=== PATIENT | female | born 1965 | race African-American/Black ===

== ENCOUNTER 2019-04-26 18:07 | Inpatient (IN) | payer MEDICARE, MEDICAID ==
[~2019-04-26] VITALS: Ht 157.5 cm; Wt 72.3 kg
--- NOTE | 2019-04-26 18:45 | NUR ---
ED Nurse Note: PT brought in by ambulance for c/o sob / hypoxia. pt had a left bunionectomy Sx this morning but did not get sent home due to de sat, pt was brought straight here. pt received xanax, prozac, and versed at 1100. pt is currently alert x4. sp02 99 with oxygen 4L/min via nc. per her foot surgeon, do not remove the cast or dressing on her left foot.
[2019-04-26 18:46] VITALS: BP 140/90
--- NOTE | 2019-04-26 19:03 | NUR ---
ED Nurse Note: x ray at bedside. blood sent to lab
[2019-04-26 19:32] LABS: HEMATOCRIT 38.4 % (37.0-47.0); HEMOGLOBIN 12.8 G/DL (12.0-16.0); MEAN CORPUSCULAR VOLUME 90 FL (80-99); PLATELET COUNT 228 K/UL (150-450); RED BLOOD COUNT 4.28 M/UL (4.20-5.40); WHITE BLOOD COUNT 13.4 K/UL (4.8-10.8)
[2019-04-26 19:33] LABS: LYMPHOCYTES % (AUTO) 3.2 % (20.0-45.0); MONOCYTES % (AUTO) 0.6 % (1.0-10.0); NEUTROPHILS % (AUTO) 95.6 % (45.0-75.0)
[2019-04-26 19:34] LABS: BASOPHILS % (AUTO) 0.6 % (0.0-2.0)
--- NOTE | 2019-04-26 19:35 | NUR ---
ED Nurse Note: urine sample sent to lab
[2019-04-26 19:40] LABS: ANION GAP 8 mmol/L (5-15); BLOOD UREA NITROGEN 15 mg/dL (7-18); CALCIUM 8.5 MG/DL (8.5-10.1); CARBON DIOXIDE 30 MMOL/L (21-32); CHLORIDE 104 MMOL/L (98-107); CREATININE 0.9 MG/DL (0.55-1.30); POTASSIUM 3.8 MMOL/L (3.5-5.1); SODIUM 142 MMOL/L (136-145)
[2019-04-26 19:45] LABS: ALANINE AMINOTRANSFERASE 41 U/L (12-78); ALBUMIN 3.9 G/DL (3.4-5.0); ALKALINE PHOSPHATASE 103 U/L (46-116); ASPARTATE AMINO TRANSFERASE 25 U/L (15-37); BILIRUBIN,TOTAL 0.3 MG/DL (0.2-1.0); CREATINE KINASE 84 U/L (26-308)
--- NOTE | 2019-04-26 20:07 | Emergency Room Report ---
History of Present Illness General Chief Complaint: Dyspnea/Respdistress Source: Patient, Medical Record, EMS, PMD Present Illness HPI Disclaimer: Please note that this report is being documented using [employer] technology. This can lead to erroneous entry secondary to incorrect interpretation by the dictating instrument. HPI: 54-year-old female with history of COPD presents for evaluation of hypotension and hypoxia after a an elective procedure. Patient had a left bunionectomy today in outpatient surgical center. After the LMA was removed after sedation the patient was found saturating 70 to 80% and had a significant cough with moderate sputum production. According to the patient's anesthesiologist she had not inform them of her recent cough and increasing sputum in the setting of her COPD. She was reportedly hypotensive at the procedure but improved after fluids. She was sent over the ER for medical evaluation. Currently she is on complaining of pain over the left foot over the surgical site. She reportedly received a nerve block by anesthesia as well. She denies any shortness of breath but does note a worsening cough and a hoarse voice which is not her baseline. States her whole family is sick with an upper respiratory illness. No recent fevers, chills, sore throat. She notes nasal congestion, cough but denies chest pain, vomiting or diarrhea. PMH: COPD PSH: Bunionectomy Allergies: Morphine, Toradol Social Hx: Denies drug or alcohol abuse Allergies: Coded Allergies: MORPHINE (Verified Allergy, Unknown, 04/26/19) Patient History Last Menstrual Period: hystrectomy Nursing Documentation-PMH Past Medical History: No History, Except For Review of Systems All Other Systems: negative except mentioned in HPI Physical Exam Vital Signs Date Time Temp Pulse Resp B/P (MAP) Pulse Ox O2 Delivery O2 Flow Rate FiO2 04/26/19 18:36 98.2 94 16 133/94 (107) 99 Nasal Cannula 2.0 General: Awake and alert, appears uncomfortable HEENT: NC/AT. EOMI. Cardiovascular: RRR. S1 and S2 normal. No murmur appreciated Resp: Normal work of breathing. No cough, wheezing or crackles appreciated Abdomen: Abdomen is soft, nondistended. Nontender Skin: Intact. No abrasions, laceration or rash over the exposed skin MSK: Normal tone and bulk. Postoperative shoe on the left foot. Neuro: Awake and alert. Mentating appropriately. Medical Decision Making Diagnostic Impression: Primary Impression: Bronchitis Additional Impression: COPD exacerbation ER Course This is a 54-year-old female presenting from outpatient surgical center for hypotension and hypoxia after a an elective bunionectomy. Differential includes was not limited to pneumonia, bronchitis, COPD exacerbation, influenza , viral syndrome, anesthesia reaction. Patient is saturating approximately 88% on room air but improves to 94% on 2 L. Pressures have been stable since arrival. We will continue IV fluids. Will give breathing treatments, steroids , broad labs. Laboratory Tests Test 04/26/19 18:45 04/26/19 19:56 04/26/19 20:04 White Blood Count 13.4 K/UL (4.8-10.8) H Red Blood Count 4.28 M/UL (4.20-5.40) Hemoglobin 12.8 G/DL (12.0-16.0) Hematocrit 38.4 % (37.0-47.0) Mean Corpuscular Volume 90 FL (80-99) Mean Corpuscular Hemoglobin 29.9 PG (27.0-31.0) Mean Corpuscular Hemoglobin Concent 33.4 G/DL (32.0-36.0) Red Cell Distribution Width 11.0 % (11.6-14.8) L Platelet Count 228 K/UL (150-450) Mean Platelet Volume 7.0 FL (6.5-10.1) Neutrophils (%) (Auto) 95.6 % (45.0-75.0) H Lymphocytes (%) (Auto) 3.2 % (20.0-45.0) L Monocytes (%) (Auto) 0.6 % (1.0-10.0) L Eosinophils (%) (Auto) 0.0 % (0.0-3.0) Basophils (%) (Auto) 0.6 % (0.0-2.0) Sodium Level 142 MMOL/L (136-145) Potassium Level 3.8 MMOL/L (3.5-5.1) Chloride Level 104 MMOL/L (98-107) Carbon Dioxide Level 30 MMOL/L (21-32) Anion Gap 8 mmol/L (5-15) Blood Urea Nitrogen 15 mg/dL (7-18) Creatinine 0.9 MG/DL (0.55-1.30) Estimate Glomerular Filtration Rate > 60 mL/min (>60) Glucose Level 127 MG/DL (74-106) H Lactic Acid Level 2.00 mmol/L (0.4-2.0) Calcium Level 8.5 MG/DL (8.5-10.1) Total Bilirubin 0.3 MG/DL (0.2-1.0) Aspartate Amino Transferase (AST) 25 U/L (15-37) Alanine Aminotransferase (ALT) 41 U/L (12-78) Alkaline Phosphatase 103 U/L (46-116) Total Creatine Kinase 84 U/L (26-308) Troponin I 0.013 ng/mL (0.000-0.056) Total Protein 7.9 G/DL (6.4-8.2) Albumin 3.9 G/DL (3.4-5.0) Globulin 4.0 g/dL Albumin/Globulin Ratio 1.0 (1.0-2.7) Urine Color Pale yellow Urine Appearance Clear Urine pH 7 (4.5-8.0) Urine Specific Adin 1.005 (1.005-1.035) Urine Protein Negative (NEGATIVE) Urine Glucose (UA) Negative (NEGATIVE) Urine Ketones Negative (NEGATIVE) Urine Blood 2+ (NEGATIVE) H Urine Nitrite Negative (NEGATIVE) Urine Bilirubin Negative (NEGATIVE) Urine Urobilinogen Normal MG/DL (0.0-1.0) Urine Leukocyte Esterase Negative (NEGATIVE) Urine RBC 2-4 /HPF (0 - 2) H Urine WBC 0 /HPF (0 - 2) Urine Squamous Epithelial Cells Occasional /LPF Urine Bacteria None /HPF (NONE) Arterial Blood pH 7.355 (7.350-7.450) Arterial Blood Partial Pressure CO2 52.4 mmHg (35.0-45.0) H Arterial Blood Partial Pressure O2 72.9 mmHg (75.0-100.0) L Arterial Blood HCO3 28.6 mmol/L (22.0-26.0) H Arterial Blood Oxygen Saturation 94.3 % (95-100) L Arterial Blood Base Excess 2.1 (-2-2) H Freddy Test Positive EKG Diagnostic Results EKG Time: 18:41 Rate: normal Rhythm: NSR ST Segments: no acute changes Other Impression Sinus rhythm, normal axis, normal intervals, no ST segment changes Rhythm Strip Diag. Results Rhythm Strip Time: 18:41 EP Interpretation: yes Rate: 90s Rhythm: NSR, no PVC's, no ectopy Chest X-Ray Diagnostic Results Chest X-Ray Diagnostic Results : Chest X-Ray Ordered: Yes # of Views/Limited/Complete: 1 View Indication: Shortness of Breath EP Interpretation: Yes Interpretation: no consolidation, no effusion, no acute cardiopulmonary disease Impression: No acute disease Electronically Signed by: Electronically signed by Dr. Mark Lopez Reevaluation Time: 22:35 Last Vital Signs Date Time Temp Pulse Resp B/P (MAP) Pulse Ox O2 Delivery O2 Flow Rate FiO2 04/26/19 18:46 90 16 Nasal Cannula 4.0 04/26/19 18:46 98.2 140/90 99 Reevaluation Impression Labs show slight elevation in white count with a neutrophil predominance. Chemistry unremarkable. Lactate 2.0, troponin negative. Urine unremarkable. Blood gas shows CO2 retention with a PCO2 of 52 and mild hypoxemia with a PO2 of 73. The patient continues on nasal cannula. Will increase to 6 L. She will be admitted for COPD exacerbation and bronchitis. She was given ceftriaxone and azithromycin as well as steroids. Toradol and opiate pain medication as needed. Disposition: ADMITTED INPATIENT Condition: Serious Mark Lopez MD Apr 26, 2019 20:07
[2019-04-26] MEDS ORDERED: HYDROcodone/Acetamin 10/325 tab ORAL ONE (20:15)
[2019-04-26] MEDS ORDERED: Azithromycin 500 MG in NS 275 ML IV ONE (20:15)
[2019-04-26] MEDS ORDERED: Albuterol/Ipratropium 3ml neb HHN ONE (20:15)
[2019-04-26] MEDS ORDERED: cefTRIAXone 1 GM in NS 55 ML IVPB ONE (20:15)
[2019-04-26] MEDS ORDERED: Solu-MEDROL 125mg Inj IVP ONE (20:15)
[2019-04-26 21:09] LABS: APPEARANCE,URINE CLEAR; BILIRUBIN, URINE NEGATIVE (NEGATIVE); COLOR,URINE PALE YELLOW; GLUCOSE, URINE (UA) NEGATIVE (NEGATIVE); KETONES,URINE NEGATIVE (NEGATIVE); LEUKOCYTE ESTERASE ,URINE NEGATIVE (NEGATIVE); NITRITE,URINE NEGATIVE (NEGATIVE); PH,URINE 7 (4.5-8.0); PROTEIN,URINE NEGATIVE (NEGATIVE); UROBILINOGEN,URINE NORMAL MG/DL (0.0-1.0)
[2019-04-26] MEDS ORDERED: Ketorolac 30mg Inj IV ONE (21:15)
[2019-04-26] MEDS ORDERED: Hydromorphone 0.5mg/0.5ml inj ONE (21:29)
[2019-04-26] MEDS ORDERED: Hydromorphone 0.5mg/0.5ml inj IVP ONE (21:30)
[2019-04-26 22:01] VITALS: BP 148/88
--- NOTE | 2019-04-26 22:03 | NUR ---
ED Nurse Note: pt in bed resting, no acute distress is noted.
[2019-04-26] MEDS ORDERED: PROZAC40 MG ORAL (22:46)
[2019-04-26] MEDS ORDERED: ABILIFY10 MG ORAL (22:48)
[2019-04-26] MEDS ORDERED: SEROQUEL200 MG ORAL (22:49)
[2019-04-26] MEDS ORDERED: ALPRAZOLAM1 MG ORAL (22:49)
[2019-04-26] MEDS ORDERED: PERCOCET 10-321 EACH ORAL (22:49)
[2019-04-26] MEDS ORDERED: RESTORIL15 MG ORAL (22:49)
--- NOTE | 2019-04-26 22:50 | NUR ---
ED Nurse Note: pt brought up to tele room 209 in stable condition via gurney accompanied by visual basic programmer and rn. report given to cherise / kacey whatley. belonging list signed off.
--- NOTE | 2019-04-26 23:05 | NUR ---
NURSE NOTES: Pt received from JULIETA Tovar alert and oriented x4 with no acute s/s of distress noted. On 2L NC, saturating at 97%. VS stable upon admission, complaining of 8/10 pain on left foot. IV site asymptoamtic and patent on R ac 24g and R hand 24g. Belongings with patient upon admission with red iphone at bedside. Pt has postop boot on L foot with cast underneath, postop from bunionectomy. Bed in lowest position, call light and belongings within reach.
[2019-04-26 23:17] VITALS: BP 158/96
--- NOTE | 2019-04-26 23:23 | NUR ---
NURSE NOTES: Left message with Dr. Xavier's exchange for admission orders. Currently awaiting call back.
--- NOTE | 2019-04-27 00:11 | NUR ---
NURSE NOTES: Called Dr. Xavier's exchange office again for admission orders and spoke with Ana. Per Ana, she will page MD again. Currently awaiting call back.
--- NOTE | 2019-04-27 01:01 | NUR ---
NURSE NOTES: Called Dr. Xavier's office for admission orders. No answer per Ana. "will try to page MD again." Currently awaiting call back.
--- NOTE | 2019-04-27 01:10 | NUR ---
NURSE NOTES: Nursing Server Systems Administrator made aware of unanswered pages to Dr. Xavier. Per Vahe, "no home phone number found for Dr. Xavier".
--- NOTE | 2019-04-27 01:45 | NUR ---
NURSE NOTES: RN spoke with Ashlyn Cartagena who stated that she left message to Dr. Walls's service (covering behavioral medical director) to obtain admission orders. Awaiting call back, will continue to monitor.
--- NOTE | 2019-04-27 02:56 | NUR ---
NURSE NOTES: No call back received from Dr. Walls's office. RN called Dr. Walls's office again for admission orders, spoke with Joseph. Currently awaiting call back. Will continue to monitor.
--- NOTE | 2019-04-27 03:47 | NUR ---
NURSE NOTES: Per Nursing Java Grails Developer and Charge Nurse, RN left message for Dr. Shah regarding admission orders and for clarification. Currently awaiting call back, will continue to monitor.
[2019-04-27 04:00] VITALS: BP 141/75
--- NOTE | 2019-04-27 05:37 | NUR ---
NURSE NOTES: RN called Dr. Xavier's exchange office for admission orders. Per Madie, "The doctor did not answer the page, I will page him again."
--- NOTE | 2019-04-27 06:34 | NUR ---
NURSE NOTES: Received admission orders from Dr. Piper. Will carry out orders accordingly.
[2019-04-27] MEDS ORDERED: HYDROmorphone 1mg/ml Carpuject IVP PRN ×2 (06:45→10:30)
[2019-04-27] MEDS ORDERED: guaiFENesin w/Codeine 5ml Liq ud ORAL PRN (06:45)
--- NOTE | 2019-04-27 07:25 | NUR ---
NURSE NOTES: Report received from JULIETA Villa. Pt. In 2L NC. Denies SOB. Pain concern communicated. To follow up with MD. Herb Patel 24g IV flushed SL. Bed on lowest position, side rails upx2, brakes engaged. Fall education given. Bed side commode with reach. Call light within easy access.
--- NOTE | 2019-04-27 07:25 | NUR ---
HAND-OFF: Report given to JULIETA Saha. Plan of care endorsed.
[2019-04-27 08:00] VITALS: BP 121/86
[2019-04-27] MEDS: Albuterol/Ipratropium 3ml neb HHN SCH ×4 (08:15→20:42)
[2019-04-27 08:33] LABS: HEMATOCRIT 37.2 % (37.0-47.0); HEMOGLOBIN 12.4 G/DL (12.0-16.0); MEAN CORPUSCULAR VOLUME 90 FL (80-99); PLATELET COUNT 239 K/UL (150-450); RED BLOOD COUNT 4.14 M/UL (4.20-5.40); RED CELL DISTRIBUTION WIDTH 12.6 % (11.6-14.8); WHITE BLOOD COUNT 12.6 K/UL (4.8-10.8)
[2019-04-27 08:39] LABS: ALANINE AMINOTRANSFERASE 36 U/L (12-78); ALBUMIN 3.7 G/DL (3.4-5.0); ALKALINE PHOSPHATASE 93 U/L (46-116); ANION GAP 10 mmol/L (5-15); ASPARTATE AMINO TRANSFERASE 19 U/L (15-37); BILIRUBIN,TOTAL 0.3 MG/DL (0.2-1.0); BLOOD UREA NITROGEN 17 mg/dL (7-18); CALCIUM 8.7 MG/DL (8.5-10.1); CARBON DIOXIDE 28 MMOL/L (21-32); CHLORIDE 104 MMOL/L (98-107); CREATININE 0.8 MG/DL (0.55-1.30); PHOSPHORUS 2.7 MG/DL (2.5-4.9); POTASSIUM 4.2 MMOL/L (3.5-5.1); SODIUM 142 MMOL/L (136-145)
[2019-04-27] MEDS ORDERED: ALPRAZolam 0.5mg tab ORAL ONE (09:00)
[2019-04-27] MEDS ORDERED: QUEtiapine 200mg tab ORAL SCH (09:00)
[2019-04-27] MEDS: ARIPiprazole 10mg tab ORAL SCH (09:16)
[2019-04-27] MEDS: Azithromycin 250mg tab ORAL SCH (09:16)
[2019-04-27] MEDS: Heparin 5000 units/ml inj SUBQ SCH ×2 (09:17→21:38)
[2019-04-27] MEDS ORDERED: DiphenhydrAMINE 50mg/ml Inj IVP ONE (10:30)
[2019-04-27] MEDS: HYDROmorphone 1mg/ml Carpuject IVP PRN ×3 (11:29→20:39)
[2019-04-27 12:00] VITALS: BP 101/68
--- NOTE | 2019-04-27 12:20 | NUR ---
NURSE NOTES: Called Dr. Arias's office to notified of new consult. (Rachel)
--- NOTE | 2019-04-27 12:27 | NUR ---
CASE MANAGEMENT: 54 Y/O FEMALE [facility] PMH: S/P BUNIONECTOMY CC: DYSPNEA/ RESPIRATORY DISTRESS. SI: COPD 98.2 94 16 133/94 99% NC @[facility] 12.4 TROP 0.013 IS: SOLU-MEDROL 125 MG IV ROCEPHIN 1GM IV AZITHROMYCIN 500 MG IV Addendum: 04/27/19 at 1254 by DINESH SHAW RN CASE MANAGEMENT: ~~~~~~[employer]LE[employer] [facility]
--- NOTE | 2019-04-27 12:56 | Diagnostic Imaging Report ---
Indication: Chest pain Technique: XRAY Chest 1v Comparison: None Findings: Heart size and mediastinal contours are within normal limits for AP technique. Peribronchial thickening is suggested. There is no definite focal airspace consolidation no pneumothorax or pleural effusion. Osseous structures demonstrate no acute abnormality. Impression: Peribronchial thickening which may suggest small airway disease/bronchitis. Please correlate clinically.
[2019-04-27] MEDS: Piperacillin/Tazobactam 3.375 GM in NS 110 ML IVPB SCH ×2 (14:46→21:35)
[2019-04-27 16:00] VITALS: BP 124/71
--- NOTE | 2019-04-27 16:02 | Diagnostic Imaging Report ---
Indication: Cough, shortness of breath, COPD Technique: Noncontrast CT of the chest utilizing automated exposure control. Axial, sagittal and coronal reformats presented. CT dose: Total DLP 811.6 mGycm; CTDI vol 16.4 mGy Comparison: None Findings: Please note that evaluation of the mediastinum and vascular structures is limited without the use of intravenous contrast. Within these limitations the following observations are made: There is asymmetric groundglass opacification in the left lung with a somewhat perihilar distribution. Minimal groundglass changes noted in the central right upper lobe. There is no dense consolidation. No pleural effusion or pneumothorax. Heart size within normal limits. No pericardial effusion. Thoracic aorta appears normal in caliber with minimal atherosclerotic calcification. No appreciable pathologically enlarged mediastinal lymphadenopathy. Thyroid is normal in appearance. Imaged portions of the upper abdomen demonstrate no acute abnormality. Minimal degenerative changes noted in the spine. No acute osseous abnormality. IMPRESSION: Perihilar groundglass opacities in the left lung. Differential is broad. Most common etiologies include infectious or inflammatory disease, with infection being favored in this case given history of cough. Additional etiologies include asymmetric alveolar edema or hypersensitivity pneumonitis among others. Clinical correlation and follow-up recommended. No focal consolidation, pleural effusion or pneumothorax. The CT scanner at [facility] is accredited by the [employer] and the scans are performed using protocols designed to limit radiation exposure to as low as reasonably achievable to attain images of sufficient resolution adequate for diagnostic evaluation.
--- NOTE | 2019-04-27 17:30 | Consultation ---
DATE OF CONSULTATION: 04/27/2019 INFECTIOUS DISEASES CONSULTATION CONSULTING PHYSICIAN: Papo Reddy M.D. REFERRING PHYSICIAN: Narendra Xavier M.D. REASON FOR CONSULTATION: Rule out possible pneumonia. HISTORY OF PRESENT ILLNESS: This is a 54-year-old lady with history of COPD, possible hypertension and hypothyroidism who comes in with hypoxia and hypotension after she has had left bunionectomy at the [facility]. There was a concern for pneumonia and an Infectious Diseases consultation has been obtained for antibiotics. PAST MEDICAL HISTORY: 1. History of COPD. 2. Possible hypertension. 3. Hypothyroidism. 4. Status post bunionectomy. SOCIAL HISTORY: She used to be a smoker. She does not smoke anymore. She does not drink alcohol. No history of drug use. FAMILY HISTORY: Her father had prostate cancer. Her mother had heart disease. REVIEW OF SYSTEMS: RESPIRATORY: She has fevers and chills. She has cough. She has shortness of breath. CARDIAC: No chest pain. No palpitation. No dizziness. No syncope. GASTROINTESTINAL: She has nausea. No vomiting. No abdominal pain. No diarrhea. MUSCULOSKELETAL: She complains of left leg pain. MEDICATIONS: As an inpatient, she is on ceftriaxone, subcutaneous heparin, azithromycin, Abilify, Prozac, Seroquel, albuterol ipratropium, guaifenesin, codeine, Zofran, [place], Dilaudid, Tylenol. ALLERGIES: 1. Ketorolac. 2. Morphine. PHYSICAL EXAMINATION: VITAL SIGNS: Temperature of 97.7, T-max of 98.7, pulse of 101, respiratory rate of 18, blood pressure 121/86, O2 saturation of 97%. HEENT: Pupils are equally reactive to light and accommodation. Mouth appears clean without thrush. NECK: Supple. No adenopathy. No JVD. CARDIOVASCULAR: Regular rate and rhythm. No murmurs. LUNGS: Clear to auscultation bilaterally. No crackles. No wheezes. ABDOMEN: Soft and nontender. No organomegaly. EXTREMITIES: No cyanosis, no clubbing, no edema. LABORATORY AND DIAGNOSTIC DATA: White count of 13.4 yesterday, white count of 12.6 today, hemoglobin 12.4, hematocrit 37.2, MCV 90, platelet count of 239. Sodium 142, potassium 4.2, chloride 104, bicarb 28, BUN 17, creatinine 0.8, glucose 136, calcium 8.7. Total bilirubin 0.3, AST 19, ALT 36, alkaline phosphatase 93, total protein 7.4, albumin 3.7. UA showing 0 white cells. Chest x-ray is showing no consolidation. ASSESSMENT: This is a 54-year-old lady with history of COPD, who underwent bunionectomy and subsequently came in with fevers and is found to have. 1. Leukocytosis. 2. We would like to rule out COPD exacerbation. 3. Leukocytosis could also be reactive. 4. . PLAN: 1. Continue ceftriaxone and azithromycin. 2. We will order sputum for Gram stain and culture. 3. We will order nasal swab for influenza. 4. We will follow up cultures and adjust antibiotics accordingly. I would like to thank, Dr. Xavier, for this consultation. Papo Reddy M.D. DR: Dylan JOB#: [id number] CC: Romel Xavier M.D.; Fax#: [phone]
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
--- NOTE | 2019-04-27 18:45 | Consultation ---
DATE OF CONSULTATION: 04/27/2019 PULMONARY CONSULTATION CONSULTING PHYSICIAN: Karson Collier M.D. REQUESTING PHYSICIAN: Romel Xavier M.D. REASON FOR CONSULTATION: Shortness of breath. HISTORY OF PRESENT ILLNESS: This is a 54-year-old female with history of COPD. She came to the hospital with hypotension and hypoxia. Apparently, she had left bunionectomy yesterday as outpatient center. After the LMA was removed, she was hypoxic and had cough. She was also hypotensive. She was sent to the ER at [facility] for evaluation. She states she is feeling better overnight. The patient states she received nerve block as well. PAST MEDICAL HISTORY: COPD. PAST SURGICAL HISTORY: Bunionectomy. ALLERGIES: To morphine and Toradol. SOCIAL HISTORY: Denies alcohol or tobacco usage. MEDICATIONS: Home medications reviewed and reconciled in the chart. PHYSICAL EXAMINATION: GENERAL: Reveals a 54-year-old female. VITAL SIGNS: O2 saturation 100% on 2 L of oxygen, blood pressure 120/80, heart rate 84, respiratory rate , she afebrile. HEENT: Unremarkable. CHEST: Decreased breath sound on the right side. ABDOMEN: Soft. EXTREMITIES: There is no edema. NONFOCAL: Nonfocal. Bunionectomy noted. LABORATORY DATA: Lab testing shows white count 20565, otherwise normal CBC. Chemistries are normal. Blood gas shows ABG 7.35, pCO2 52, pO2 79. Urinalysis negative. Imaging studies per report is negative although I have not been able to review it personally. IMPRESSION: 1. Hypoxia after LMA. 2. Rule out aspiration pneumonia. 3. History of COPD. 4. Hypoxia. DISCUSSION: 1. Agree with admission and care. 2. I will obtain a chest CT. 3. Continue antibiotics. 4. Continue psych medications. 5. We will follow as test architect. Karson Collier M.D. DR: Farrah JOB#: [id number] CC:
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
[2019-04-27] MEDS: HYDROcodone/Acetamin 10/325 tab ORAL PRN (18:49)
--- NOTE | 2019-04-27 19:45 | NUR ---
NURSE NOTES: Received pt and report from JULIETA Kumar. Observed pt resting in bed with both eyes open and watching television. Pt is A/Ox4. phototypesetting equipment monitor is in placed; pt is NSR. IV site intact, asymptomatic, and patent. Bed is in the lowest position and locked. Call light and bedside table is within reach. No signs/symptoms of acute distress noted at this time. Will continue plan of care.
[2019-04-27 20:00] VITALS: BP 100/53
[2019-04-27] MEDS ORDERED: DiphenhydrAMINE 50mg/ml Inj IVP PRN (20:30)
[2019-04-27] MEDS: DiphenhydrAMINE 50mg/ml Inj IVP PRN (20:38)
[2019-04-27] MEDS: cefTRIAXone 1 GM in D5W 55 ML IVPB SCH (20:48)
[2019-04-27] MEDS: Solu-MEDROL 40mg Inj IVP SCH (21:35)
[2019-04-28] VITALS: BP 109/69
[2019-04-28] MEDS: Albuterol/Ipratropium 3ml neb HHN SCH ×7 (00:01→22:38)
[2019-04-28] MEDS: HYDROmorphone 1mg/ml Carpuject IVP PRN ×5 (00:44→22:36)
[2019-04-28] MEDS: DiphenhydrAMINE 50mg/ml Inj IVP PRN ×3 (02:44→18:26)
[2019-04-28] MEDS: HYDROcodone/Acetamin 10/325 tab ORAL PRN (02:45)
[2019-04-28 04:00] VITALS: BP 120/72
[2019-04-28] MEDS: Piperacillin/Tazobactam 3.375 GM in NS 110 ML IVPB SCH (06:00)
--- NOTE | 2019-04-28 07:10 | NUR ---
HAND-OFF: Report given to JULIETA Kumar. Plan of care endorsed.
[2019-04-28 08:00] VITALS: BP 129/83
[2019-04-28] MEDS: Azithromycin 250mg tab ORAL SCH (09:43)
[2019-04-28] MEDS: ARIPiprazole 10mg tab ORAL SCH (09:43)
[2019-04-28] MEDS: Solu-MEDROL 40mg Inj IVP SCH ×2 (09:44→22:37)
[2019-04-28] MEDS: Heparin 5000 units/ml inj SUBQ SCH ×2 (09:45→22:38)
--- NOTE | 2019-04-28 09:48 | Consultation ---
History of Present Illness General Date patient seen: Apr 28, 2019 Present Illness Allergies: Coded Allergies: KETOROLAC (Verified Allergy, Unknown, hives, 04/27/19) MORPHINE (Verified Allergy, Unknown, hives, 04/27/19) Medication History Scheduled Alprazolam* (Xanax*), 1 MG ORAL BID, (Reported) Aripiprazole* (Abilify*), 10 MG ORAL DAILY, (Reported) Fluoxetine Hcl* (Prozac*), 40 MG ORAL DAILY, (Reported) Quetiapine Fumarate* (Seroquel*), 600 MG ORAL DAILY, (Reported) Scheduled PRN Oxycodone Hcl/Acetaminophen 10-325 Mg Tablet (Percocet 10-325 Mg Tablet*), 1 TAB ORAL Q8H PRN for For Pain, (Reported) Temazepam* (Restoril*), 15 MG ORAL BEDTIME PRN for Insomnia, (Reported) Patient History Healthcare decision maker Resuscitation status Full Code Advanced Directive on File Physical Exam Last 24 Hour Vital Signs Date Time Temp Pulse Resp B/P (MAP) Pulse Ox O2 Delivery O2 Flow Rate FiO2 04/28/19 07:29 95 Nasal Cannula 2.0 28 04/28/19 07:29 83 18 95 Nasal Cannula 2.0 28 82 18 95 04/28/19 04:00 76 04/28/19 04:00 97.7 85 19 120/72 (88) 94 04/28/19 03:56 85 18 95 Nasal Cannula 2.0 28 81 18 94 04/28/19 00:00 97.7 75 20 109/69 (82) 94 04/28/19 00:00 75 04/28/19 00:00 82 18 96 Nasal Cannula 2.0 28 80 18 93 04/27/19 21:00 Nasal Cannula 2.0 04/27/19 20:48 93 Nasal Cannula 2.0 28 04/27/19 20:30 86 18 95 Nasal Cannula 2.0 28 83 18 92 04/27/19 20:00 99 04/27/19 20:00 97.9 81 20 100/53 (69) 95 04/27/19 16:00 90 04/27/19 16:00 97.0 76 18 124/71 (88) 97 04/27/19 15:16 85 18 93 Nasal Cannula 2.0 28 87 18 86 04/27/19 12:00 98.2 101 20 101/68 (79) 97 04/27/19 12:00 105 04/27/19 11:59 97.7 04/27/19 11:13 110 18 97 Nasal Cannula 2.0 28 106 18 90 Intake and Output 04/27/19 04/28/19 19:00 07:00 Intake Total 1200 ml Balance 1200 ml Intake Oral 1200 ml # Voids 6 Microbiology Date/Time Source Procedure Growth Status 04/28/19 01:10 Nasal Nares - Final Complete 04/28/19 01:10 Nasal Nares - Final Complete Height (Feet): 5 Height (Inches): 2.00 Weight (Pounds): 159 Medications Current Medications Medications (Trade) Dose Ordered Sig/Roger Route PRN Reason Start Time Stop Time Status Last Admin Dose Admin Acetaminophen (Tylenol) 650 mg Q6H PRN ORAL Mild Pain/Temp > 100.5 04/27/19 06:45 05/27/19 06:44 Acetaminophen/ Hydrocodone Bitart ([place] 10/325) 1 tab Q4H PRN ORAL Moderate Pain (Pain Scale 4-6) 04/27/19 06:45 05/04/19 06:44 04/28/19 02:45 Albuterol/ Ipratropium (Albuterol/ Ipratropium) 3 ml Q4HRT HHN 04/27/19 07:00 05/02/19 06:59 04/28/19 07:29 Aripiprazole (Abilify) 10 mg DAILY ORAL 04/27/19 09:00 05/27/19 08:59 04/28/19 09:43 Azithromycin (Zithromax) 250 mg DAILY ORAL 04/27/19 09:00 05/02/19 09:00 04/28/19 09:43 Ceftriaxone Sodium 1 gm/ Dextrose 55 ml @ 110 mls/hr Q24H IVPB 04/27/19 20:00 05/04/19 19:59 04/27/19 20:48 Diphenhydramine HCl (Benadryl) 25 mg Q6H PRN IVP Itching 04/27/19 20:26 05/27/19 20:25 04/28/19 09:42 Fluoxetine HCl (PROzac) 40 mg DAILY ORAL 04/27/19 09:00 05/27/19 08:59 04/28/19 09:43 Gabapentin (Neurontin) 600 mg BID ORAL 04/27/19 18:00 05/27/19 17:59 04/28/19 09:42 Guaifenesin/ Codeine Phosphate (Robitussin with codeine) 10 ml EVERY 4 HOURS PRN ORAL For Cough 04/27/19 06:45 05/27/19 06:44 04/28/19 01:52 Heparin Sodium (Porcine) (Heparin 5000 units/ml) 5,000 units EVERY 12 HOURS SUBQ 04/27/19 09:00 05/27/19 08:59 04/28/19 09:45 Hydromorphone HCl (Dilaudid) 1 mg Q4H PRN IVP Severe Breakthru Pain (>7) 04/27/19 10:45 05/04/19 10:29 04/28/19 09:42 Methylprednisolone Sodium Succinate (Solu-MEDROL) 40 mg EVERY 12 HOURS IVP 04/27/19 21:00 05/27/19 20:59 04/28/19 09:44 Ondansetron HCl (Zofran) 4 mg EVERY 4 HOURS PRN IVP Nausea & Vomiting 04/27/19 06:45 05/27/19 06:44 04/28/19 04:40 Piperacillin Sod/ Tazobactam Sod 3.375 gm/Sodium Chloride 110 ml @ 27.5 mls/hr EVERY 8 HOURS IVPB 04/27/19 14:00 05/02/19 13:59 04/28/19 06:00 Quetiapine Fumarate (SEROqueL) 300 mg BID@1200,2300 ORAL 04/28/19 12:00 05/28/19 11:59 Tizanidine HCl (Zanaflex) 4 mg THREE TIMES A DAY ORAL 04/27/19 10:30 05/27/19 10:29 04/28/19 09:43 Assessment/Plan Assessment/Plan: (1) FBSS (2) Lumbar DDD (3) Lumbar Spondylosis (4) Left foot pain s/p bunionectomy seen dictated Otoniel Thomas Apr 28, 2019 09:48
--- NOTE | 2019-04-28 11:13 | Infectious Diseases Prog Note ---
Assessment/Plan Assessment/Plan A: 1. Leukocytosis. 2. COPD exacerbation. 3. Pneumonia 4. Bipolar disorder 5. s/p recent bunion surgery. PLAN: 1. Continue ceftriaxone and azithromycin. 2. We will follow sputum culture. Subjective ROS Limited/Unobtainable: No HEENT: Reports: other - soar throat Respiratory: Reports: shortness of breath Cardiovascular: Reports: no symptoms Gastrointestinal/Abdominal: Reports: no symptoms Genitourinary: Reports: no symptoms Musculoskeletal: Reports: pain, other - in left big toe Allergies: Coded Allergies: KETOROLAC (Verified Allergy, Unknown, hives, 04/27/19) MORPHINE (Verified Allergy, Unknown, hives, 04/27/19) Objective Vital Signs Last 24 Hour Vital Signs Date Time Temp Pulse Resp B/P (MAP) Pulse Ox O2 Delivery O2 Flow Rate FiO2 04/28/19 08:00 97.7 87 20 129/83 (98) 94 04/28/19 08:00 88 04/28/19 07:29 95 Nasal Cannula 2.0 28 04/28/19 07:29 83 18 95 Nasal Cannula 2.0 28 82 18 95 04/28/19 04:00 76 04/28/19 04:00 97.7 85 19 120/72 (88) 94 04/28/19 03:56 85 18 95 Nasal Cannula 2.0 28 81 18 94 04/28/19 00:00 97.7 75 20 109/69 (82) 94 04/28/19 00:00 75 04/28/19 00:00 82 18 96 Nasal Cannula 2.0 28 80 18 93 04/27/19 21:00 Nasal Cannula 2.0 04/27/19 20:48 93 Nasal Cannula 2.0 28 04/27/19 20:30 86 18 95 Nasal Cannula 2.0 28 83 18 92 04/27/19 20:00 99 04/27/19 20:00 97.9 81 20 100/53 (69) 95 04/27/19 16:00 90 04/27/19 16:00 97.0 76 18 124/71 (88) 97 04/27/19 15:16 85 18 93 Nasal Cannula 2.0 28 87 18 86 04/27/19 12:00 98.2 101 20 101/68 (79) 97 04/27/19 12:00 105 04/27/19 11:59 97.7 04/27/19 11:13 110 18 97 Nasal Cannula 2.0 28 106 18 90 Height (Feet): 5 Height (Inches): 2.00 Weight (Pounds): 159 General Appearance: no acute distress HEENT: mucous membranes moist Respiratory/Chest: lungs clear Cardiovascular: normal rate Abdomen: soft, non tender Extremities: no edema Skin: other - left foot dressing Neurologic/Psychiatric: alert, oriented x 3, responsive Microbiology Date/Time Source Procedure Growth Status 04/26/19 18:50 Blood Blood Culture - Preliminary NO GROWTH AFTER 24 HOURS Resulted 04/26/19 18:45 Blood Blood Culture - Preliminary NO GROWTH AFTER 24 HOURS Resulted 04/28/19 01:10 Nasal Nares - Final Complete 04/28/19 01:10 Nasal Nares - Final Complete Current Medications Medications (Trade) Dose Ordered Sig/Roger Route PRN Reason Start Time Stop Time Status Last Admin Dose Admin Acetaminophen (Tylenol) 650 mg Q6H PRN ORAL Mild Pain/Temp > 100.5 04/27/19 06:45 05/27/19 06:44 Albuterol/ Ipratropium (Albuterol/ Ipratropium) 3 ml Q4HRT HHN 04/27/19 07:00 05/02/19 06:59 04/28/19 10:51 Aripiprazole (Abilify) 10 mg DAILY ORAL 04/27/19 09:00 05/27/19 08:59 04/28/19 09:43 Azithromycin (Zithromax) 250 mg DAILY ORAL 04/27/19 09:00 05/02/19 09:00 04/28/19 09:43 Ceftriaxone Sodium 1 gm/ Dextrose 55 ml @ 110 mls/hr Q24H IVPB 04/27/19 20:00 05/04/19 19:59 04/27/19 20:48 Diphenhydramine HCl (Benadryl) 25 mg Q6H PRN IVP Itching 04/27/19 20:26 05/27/19 20:25 04/28/19 09:42 Fluoxetine HCl (PROzac) 40 mg DAILY ORAL 04/27/19 09:00 05/27/19 08:59 04/28/19 09:43 Gabapentin (Neurontin) 600 mg BID ORAL 04/27/19 18:00 05/27/19 17:59 04/28/19 09:42 Guaifenesin/ Codeine Phosphate (Robitussin with codeine) 10 ml EVERY 4 HOURS PRN ORAL For Cough 04/27/19 06:45 05/27/19 06:44 04/28/19 01:52 Heparin Sodium (Porcine) (Heparin 5000 units/ml) 5,000 units EVERY 12 HOURS SUBQ 04/27/19 09:00 05/27/19 08:59 04/28/19 09:45 Hydromorphone HCl (Dilaudid) 1 mg Q4H PRN IVP Severe Breakthru Pain (>7) 04/27/19 10:45 05/04/19 10:29 04/28/19 09:42 Methylprednisolone Sodium Succinate (Solu-MEDROL) 40 mg EVERY 12 HOURS IVP 04/27/19 21:00 05/27/19 20:59 04/28/19 09:44 Ondansetron HCl (Zofran) 4 mg EVERY 4 HOURS PRN IVP Nausea & Vomiting 04/27/19 06:45 05/27/19 06:44 04/28/19 04:40 Oxycodone/ Acetaminophen (Percocet 10/325) 1 tab Q4H PRN ORAL Severe Pain (Pain Scale 7-10) 04/28/19 10:00 05/05/19 09:59 Quetiapine Fumarate (SEROqueL) 300 mg BID@1200,2300 ORAL 04/28/19 12:00 05/28/19 11:59 Tizanidine HCl (Zanaflex) 4 mg THREE TIMES A DAY ORAL 04/27/19 10:30 05/27/19 10:29 04/28/19 09:43 Jose Luis Landa MD Apr 28, 2019 11:13
[2019-04-28 12:00] VITALS: BP 120/84
[2019-04-28] MEDS ORDERED: Milk of Magnesia 30ml Ud ORAL PRN (12:45)
--- NOTE | 2019-04-28 13:00 | NUR ---
NURSE NOTES: Surgical site assessed by MD. dressing changed per MD.
--- NOTE | 2019-04-28 13:40 | Consultation ---
History of Present Illness General Date patient seen: Apr 28, 2019 Time patient seen: 13:00 Chief Complaint: Dyspnea/Respdistress Referring physician: Dr. Smith Reason for Consultation: S/p L foot bunionectomy. Present Illness HPI Pt states she had L bunionectomy surgery two days ago. She developed shortness of breath, and was admitted to [place] for further work up. She relates minimal pain to LLE. Allergies: Coded Allergies: KETOROLAC (Verified Allergy, Unknown, hives, 04/27/19) MORPHINE (Verified Allergy, Unknown, hives, 04/27/19) Medication History Scheduled Alprazolam* (Xanax*), 1 MG ORAL BID, (Reported) Aripiprazole* (Abilify*), 10 MG ORAL DAILY, (Reported) Fluoxetine Hcl* (Prozac*), 40 MG ORAL DAILY, (Reported) Quetiapine Fumarate* (Seroquel*), 600 MG ORAL DAILY, (Reported) Scheduled PRN Oxycodone Hcl/Acetaminophen 10-325 Mg Tablet (Percocet 10-325 Mg Tablet*), 1 TAB ORAL Q8H PRN for For Pain, (Reported) Temazepam* (Restoril*), 15 MG ORAL BEDTIME PRN for Insomnia, (Reported) Patient History Healthcare decision maker Resuscitation status Full Code Advanced Directive on File Physical Exam Physical Exam Narrative Focused LLE Exam: Derm: Surgical Site: K-wire noted medially, intact, incision well approximated, no dehiscence is noted. (-) No acute SOI. Vasc: +2/4 DP/PT pulses. Neuro: SILT intact. MSK: MS/ROM deferred 2/2 recent surgery. Last 24 Hour Vital Signs Date Time Temp Pulse Resp B/P (MAP) Pulse Ox O2 Delivery O2 Flow Rate FiO2 04/28/19 12:00 84 04/28/19 10:55 87 18 96 Nasal Cannula 2.0 28 86 18 96 04/28/19 10:35 Nasal Cannula 2.0 04/28/19 09:00 Nasal Cannula 2.0 04/28/19 08:00 97.7 87 20 129/83 (98) 94 04/28/19 08:00 88 04/28/19 07:29 95 Nasal Cannula 2.0 28 04/28/19 07:29 83 18 95 Nasal Cannula 2.0 28 82 18 95 04/28/19 04:00 76 04/28/19 04:00 97.7 85 19 120/72 (88) 94 04/28/19 03:56 85 18 95 Nasal Cannula 2.0 28 81 18 94 04/28/19 00:00 97.7 75 20 109/69 (82) 94 04/28/19 00:00 75 04/28/19 00:00 82 18 96 Nasal Cannula 2.0 28 80 18 93 04/27/19 21:00 Nasal Cannula 2.0 04/27/19 20:48 93 Nasal Cannula 2.0 28 04/27/19 20:30 86 18 95 Nasal Cannula 2.0 28 83 18 92 04/27/19 20:00 99 04/27/19 20:00 97.9 81 20 100/53 (69) 95 04/27/19 16:00 90 04/27/19 16:00 97.0 76 18 124/71 (88) 97 04/27/19 15:16 85 18 93 Nasal Cannula 2.0 28 87 18 86 Intake and Output 04/27/19 04/28/19 19:00 07:00 Intake Total 1200 ml Balance 1200 ml Intake Oral 1200 ml # Voids 6 Microbiology Date/Time Source Procedure Growth Status 04/28/19 01:10 Nasal Nares - Final Complete 04/28/19 01:10 Nasal Nares - Final Complete Height (Feet): 5 Height (Inches): 2.00 Weight (Pounds): 159 Medications Current Medications Medications (Trade) Dose Ordered Sig/Roger Route PRN Reason Start Time Stop Time Status Last Admin Dose Admin Acetaminophen (Tylenol) 650 mg Q6H PRN ORAL Mild Pain/Temp > 100.5 04/27/19 06:45 05/27/19 06:44 Albuterol/ Ipratropium (Albuterol/ Ipratropium) 3 ml Q4HRT HHN 04/27/19 07:00 05/02/19 06:59 04/28/19 10:51 Aripiprazole (Abilify) 10 mg DAILY ORAL 04/27/19 09:00 05/27/19 08:59 04/28/19 09:43 Azithromycin (Zithromax) 250 mg DAILY ORAL 04/27/19 09:00 05/02/19 09:00 04/28/19 09:43 Ceftriaxone Sodium 1 gm/ Dextrose 55 ml @ 110 mls/hr Q24H IVPB 04/27/19 20:00 05/04/19 19:59 04/27/19 20:48 Diphenhydramine HCl (Benadryl) 25 mg Q6H PRN IVP Itching 04/27/19 20:26 05/27/19 20:25 04/28/19 09:42 Docusate Sodium (Colace) 250 mg BID ORAL 04/28/19 18:00 05/28/19 17:59 Fluoxetine HCl (PROzac) 40 mg DAILY ORAL 04/27/19 09:00 05/27/19 08:59 04/28/19 09:43 Gabapentin (Neurontin) 600 mg BID ORAL 04/27/19 18:00 05/27/19 17:59 04/28/19 09:42 Guaifenesin/ Codeine Phosphate (Robitussin with codeine) 10 ml EVERY 4 HOURS PRN ORAL For Cough 04/27/19 06:45 05/27/19 06:44 04/28/19 01:52 Heparin Sodium (Porcine) (Heparin 5000 units/ml) 5,000 units EVERY 12 HOURS SUBQ 04/27/19 09:00 05/27/19 08:59 04/28/19 09:45 Hydromorphone HCl (Dilaudid) 1 mg Q4H PRN IVP Severe Breakthru Pain (>7) 04/27/19 10:45 05/04/19 10:29 04/28/19 09:42 Magnesium Hydroxide (Mom) 30 ml BIDPRN PRN ORAL Constipation 04/28/19 12:45 05/28/19 12:44 Methylprednisolone Sodium Succinate (Solu-MEDROL) 40 mg EVERY 12 HOURS IVP 04/27/19 21:00 05/27/19 20:59 04/28/19 09:44 Ondansetron HCl (Zofran) 4 mg EVERY 4 HOURS PRN IVP Nausea & Vomiting 04/27/19 06:45 05/27/19 06:44 04/28/19 04:40 Oxycodone/ Acetaminophen (Percocet 10/325) 1 tab Q4H PRN ORAL Severe Pain (Pain Scale 7-10) 04/28/19 10:00 05/05/19 09:59 Quetiapine Fumarate (SEROqueL) 300 mg BID@1200,2300 ORAL 04/28/19 12:00 05/28/19 11:59 04/28/19 12:22 Tizanidine HCl (Zanaflex) 4 mg THREE TIMES A DAY ORAL 04/27/19 10:30 05/27/19 10:29 04/28/19 12:23 Assessment/Plan Assessment/Plan: A: S/p L bunionectomy with K-wire Fixation. COPD exacerbation. Aspiration pneumonia. P: - Pt seen and evaluated. - Discuss findings with patient. - Surgical site Stable, dressing re-applied as noted before removal. - NWB to LLE in CAM boot at all times. - Keep dressing C/D/I. - Pain meds per primary team. - Cont Tx per specialists. - Outpt treatment per patient primary Surgeon. - Thank you for consulting podiatry. James Vera DPM Apr 28, 2019 13:40
[2019-04-28 16:00] VITALS: BP 129/77
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
--- NOTE | 2019-04-28 16:32 | Diagnostic Imaging Report ---
Indications: Right knee pain Technique: Three views of the knee Comparison: None Findings: No acute fractures. No dislocations. Joint spaces are preserved. No radiopaque foreign body. Normal mineralization. Impression: No acute process
[2019-04-28] MEDS ORDERED: ALPRAZolam 0.5mg tab ORAL PRN (17:00)
[2019-04-28] MEDS: Docusate 250mg cap ORAL SCH (18:27)
--- NOTE | 2019-04-28 19:40 | NUR ---
HAND-OFF: Report given to JULIETA Denney. Pt. in stable condition. Plan of care endorsed.
--- NOTE | 2019-04-28 19:45 | NUR ---
NURSE NOTES: received pt from JULIETA Kumar. Pt is awake and resting in bed in no distress. Iv site intact and patent. Bed locked in lowest position, call light within reach. Will continue with plan of care.
[2019-04-28 20:00] VITALS: BP 106/69
[2019-04-28] MEDS: cefTRIAXone 1 GM in D5W 55 ML IVPB SCH (20:00)
[2019-04-28] MEDS: ALPRAZolam 0.5mg tab ORAL PRN (20:10)
[2019-04-28] MEDS ORDERED: QUEtiapine 200mg tab ORAL SCH (21:00)
[2019-04-29] VITALS: BP 119/78
[2019-04-29] MEDS: DiphenhydrAMINE 50mg/ml Inj IVP PRN ×2 (00:44→06:41)
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
--- NOTE | 2019-04-29 01:30 | Consultation ---
DATE OF CONSULTATION: 04/28/2019 PAIN MANAGEMENT CONSULTATION CONSULTING PHYSICIAN: Alee Nuno M.D. REFERRING PHYSICIAN: Narendra Xavier M.D. PHYSICIAN TANNING WHEEL FILLER: Mark Collado CHIEF COMPLAINT: Left lower extremity pain, low back pain. HISTORY OF PRESENT ILLNESS: This is a 54-year-old female, who is being seen on the telemetry floor of [facility] for initial pain management consultation. The patient was admitted under the care of Dr. Xavier and reports that she had been having left foot pain status post left bunionectomy which happened two days ago and also has a history of low back pain for which she takes Percocet 10 mg as an outpatient. Due to severity of pain, she was started on Dilaudid 1 mg IV every 4 hours as needed for severe pain and [place] 10/325 one tablet every 4 hours as needed for moderate pain. Because of this, we were consulted so the patient would have adequate pain control while here in the hospital. PAST MEDICAL HISTORY: Low back pain, depression, and anxiety. PAST SURGICAL HISTORY: Left foot surgery, hip replacement bilaterally, and lumbar surgery. SOCIAL HISTORY: History of smoking tobacco. Denies alcohol and IV drug abuse. ALLERGIES: 1. Morphine. 2. Toradol. MEDICATIONS: Percocet and Zanaflex. REVIEW OF SYSTEMS: Denies rash, fever, chills, sweating, dizziness, drowsiness, blurred vision, sore throat, or change in weight. No shortness of breath or chest pain. No nausea, vomiting, diarrhea, or blood in the stool or urine. No dysuria. She is complaining of left foot and low back pain. PHYSICAL EXAMINATION: GENERAL: Alert, awake, and oriented. VITAL SIGNS: Blood pressure 121/86, heart rate 88, oxygen saturation 98%, respirations 21. HEENT: PERRLA. NECK: Range of motion is full in all directions. No tenderness to paracervical muscles. No adenopathy. LUNGS: Decreased breath sounds bilaterally. HEART: S1 and S2 regular. ABDOMEN: Soft and nontender. BACK: Range of motion decreased in flexion and extension with surgical scar noted on the lumbar spine. EXTREMITIES: Upper and lower extremity range of motion decreased due to the patient's condition. No cyanosis. No clubbing. Sensory is reduced. Bandage is noted in the left foot. ASSESSMENT AND PLAN: This is a 54-year-old female with failed back surgery syndrome, lumbar degenerative disk disease, lumbar spondylosis, left foot pain status post bunionectomy. The patient will be continued on Dilaudid and will be discontinued off the [place] and start on Percocet 10/325 one tablet every 4 hours as needed for moderate pain. The patient was discussed with Dr. Nuno and Dr. Nuno concurred. We will follow the patient. Thank you very much for the courtesy of this consultation. Alee Nuno M.D. KALPANA Collado DR: Tristin JOB#: [id number] CC: ITZEL
[2019-04-29] MEDS: Albuterol/Ipratropium 3ml neb HHN SCH (03:40)
[2019-04-29 04:00] VITALS: BP 111/66
--- NOTE | 2019-04-29 06:00 | Progress Note ---
DATE: 04/28/2019 SUBJECTIVE: The patient still has medication seeking behavior, easily irritable and agitated. MENTAL STATUS EXAMINATION: The patient is alert and oriented times to self, place, situation, and date. Mood is dysphoric. Affect is constricted, congruent with mood. Thought process is concrete. Thought content, no suicidal or homicidal ideation. ASSESSMENT: Stable. PLAN: 1. Continue current medications. 2. Provide the patient with reality orientation and supportive therapy. Diego Arciniega M.D. DR: ROSE JOB#: [id number] CC:
[2019-04-29] MEDS: ALPRAZolam 0.5mg tab ORAL PRN (06:55)
--- NOTE | 2019-04-29 07:27 | NUR ---
NURSE NOTES: Nurse report given by JULIETA Suazo. Patient's awake and eating breakfast at bedside. AAO x4, denies pain, denies chest pain, no s/s of distress or SOB, slight tremor noted on hands. Bed low and locked, call light within reach, side rails x 2, walker at bedside. IV is saline locked, patent and asymptomatic. monitor and storage bin tender is on. Will continue to monitor.
--- NOTE | 2019-04-29 07:27 | NUR ---
HAND-OFF: Report given to JULIETA Castro. Endorsed plan of care.
[2019-04-29 08:00] VITALS: BP 115/65
[2019-04-29] MEDS: Heparin 5000 units/ml inj SUBQ SCH (08:29)
[2019-04-29] MEDS: Docusate 250mg cap ORAL SCH (08:30)
[2019-04-29] MEDS: Azithromycin 250mg tab ORAL SCH (08:30)
[2019-04-29] MEDS: ARIPiprazole 10mg tab ORAL SCH (08:30)
[2019-04-29] MEDS: Solu-MEDROL 40mg Inj IVP SCH (08:30)
--- NOTE | 2019-04-29 09:00 | NUR ---
HAND-OFF: Report given to JULIETA Royal. Patient's transferred to [facility] per Dr. Xavier's order. Patient's in stable condition, no s/s of distress or SOB. Patient ambulates with walker, AAO x 4. handstitching machine collar feller is off, belonging list went over with receiving nurse at bedside and signed by both nurses. Transferred orders carried out and endorsed plan of care.
[2019-04-29] MEDS ORDERED: guaiFENesin w/Codeine 5ml Liq ud ORAL PRN (09:15)
[2019-04-29] MEDS ORDERED: Milk of Magnesia 30ml Ud ORAL PRN (09:15)
[2019-04-29] MEDS ORDERED: DiphenhydrAMINE 50mg/ml Inj IVP PRN (09:15)
[2019-04-29] MEDS ORDERED: HYDROmorphone 1mg/ml Carpuject IVP PRN (09:15)
[2019-04-29] MEDS ORDERED: ALPRAZolam 0.5mg tab ORAL PRN (09:15)
[2019-04-29] MEDS ORDERED: Albuterol/Ipratropium 3ml neb HHN SCH (11:00)
[2019-04-29 11:41] VITALS: BP 144/106
--- NOTE | 2019-04-29 12:25 | General Progress Note ---
Assessment/Plan Assessment/Plan: (1) FBSS (2) Lumbar DDD (3) Lumbar Spondylosis (4) Left foot pain s/p bunionectomy Patient will be continued on Dilaudid and Percocet. She has Percocet at home and does not need an RX for discharge. D/w Dr. Nuno and he concurred. Subjective Date patient seen: Apr 29, 2019 Time patient seen: 12:00 - pm Constitutional: Reports: no symptoms HEENT: Reports: no symptoms Cardiovascular: Reports: no symptoms Respiratory: Reports: no symptoms Gastrointestinal/Abdominal: Reports: no symptoms Genitourinary: Reports: no symptoms Neurologic/Psychiatric: Reports: no symptoms Endocrine: Reports: no symptoms Hematologic/Lymphatic: Reports: no symptoms Allergies: Coded Allergies: KETOROLAC (Verified Allergy, Unknown, hives, 04/27/19) MORPHINE (Verified Allergy, Unknown, hives, 04/27/19) Subjective Patient is in bed and reports pain has been tolerated on the Dilaudid and Percocet. Will be discharged home as per category development manager. Objective Last 24 Hour Vital Signs Date Time Temp Pulse Resp B/P (MAP) Pulse Ox O2 Delivery O2 Flow Rate FiO2 04/29/19 11:46 Nasal Cannula 2.0 04/29/19 11:41 98.8 79 18 144/106 (119) 04/29/19 10:58 95 Nasal Cannula 21 04/29/19 04:00 96.8 86 18 111/66 (81) 94 04/29/19 03:40 81 18 99 Nasal Cannula 2.0 28 77 18 96 04/29/19 00:00 97.7 86 18 119/78 (92) 93 04/28/19 22:38 85 18 99 Nasal Cannula 2.0 28 84 18 97 04/28/19 21:00 Nasal Cannula 2.0 04/28/19 20:00 96.4 83 20 106/69 (81) 97 04/28/19 19:58 82 18 97 Nasal Cannula 2.0 28 79 18 94 04/28/19 19:58 94 Nasal Cannula 2.0 28 04/28/19 16:00 97.7 79 20 129/77 (94) 94 04/28/19 14:40 87 18 96 Nasal Cannula 2.0 28 82 18 96 Intake and Output 1/16/20 1/17/20 19:00 07:00 Intake Total 1280 ml Balance 1280 ml Intake Oral 1280 ml # Voids 6 3 Height (Feet): 5 Height (Inches): 2.00 Weight (Pounds): 159 General Appearance: no apparent distress, alert EENT: PERRL/EOMI, normal ENT inspection Neck: normal alignment, supple Cardiovascular: normal rate, regular rhythm Respiratory/Chest: decreased breath sounds Abdomen: non tender, soft Extremities: other - boot noted on left foot Edema: no edema noted Generalized Neurologic: alert, oriented x 3 Skin: warm/dry Otoniel Thomas Apr 29, 2019 12:25
--- NOTE | 2019-04-29 13:02 | Infectious Diseases Prog Note ---
Assessment/Plan Assessment/Plan A: 1. Leukocytosis. 2. COPD exacerbation. 3. Pneumonia 4. Bipolar disorder 5. s/p recent bunion surgery. PLAN: 1. Continue ceftriaxone and azithromycin. Subjective ROS Limited/Unobtainable: No Constitutional: Reports: no symptoms, other - feels better Cardiovascular: Reports: no symptoms Gastrointestinal/Abdominal: Reports: no symptoms Musculoskeletal: Reports: pain, other - at site of surgery controlled Allergies: Coded Allergies: KETOROLAC (Verified Allergy, Unknown, hives, 04/27/19) MORPHINE (Verified Allergy, Unknown, hives, 04/27/19) Objective Vital Signs Last 24 Hour Vital Signs Date Time Temp Pulse Resp B/P (MAP) Pulse Ox O2 Delivery O2 Flow Rate FiO2 04/29/19 11:46 Nasal Cannula 2.0 04/29/19 11:41 98.8 79 18 144/106 (119) 04/29/19 10:58 95 Nasal Cannula 21 04/29/19 04:00 96.8 86 18 111/66 (81) 94 04/29/19 03:40 81 18 99 Nasal Cannula 2.0 28 77 18 96 04/29/19 00:00 97.7 86 18 119/78 (92) 93 04/28/19 22:38 85 18 99 Nasal Cannula 2.0 28 84 18 97 04/28/19 21:00 Nasal Cannula 2.0 04/28/19 20:00 96.4 83 20 106/69 (81) 97 04/28/19 19:58 82 18 97 Nasal Cannula 2.0 28 79 18 94 04/28/19 19:58 94 Nasal Cannula 2.0 28 04/28/19 16:00 97.7 79 20 129/77 (94) 94 04/28/19 14:40 87 18 96 Nasal Cannula 2.0 28 82 18 96 Height (Feet): 5 Height (Inches): 2.00 Weight (Pounds): 159 General Appearance: no acute distress HEENT: mucous membranes moist Respiratory/Chest: lungs clear Cardiovascular: normal rate Abdomen: soft, non tender Extremities: no edema Neurologic/Psychiatric: alert, oriented x 3, responsive Microbiology Date/Time Source Procedure Growth Status 04/26/19 18:50 Blood Blood Culture - Preliminary NO GROWTH AFTER 48 HOURS Resulted 04/26/19 18:45 Blood Blood Culture - Preliminary NO GROWTH AFTER 48 HOURS Resulted 04/28/19 06:50 Sputum Gram Stain - Final Resulted 04/28/19 06:50 Sputum Sputum Culture - Preliminary NORMAL UPPER RESPIRATORY ROSEY PRESENT Resulted 04/28/19 01:10 Nasal Nares - Final Complete 04/28/19 01:10 Nasal Nares - Final Complete Current Medications Medications (Trade) Dose Ordered Sig/Roger Route PRN Reason Start Time Stop Time Status Last Admin Dose Admin Acetaminophen (Tylenol) 650 mg Q6H PRN ORAL Mild Pain/Temp > 100.5 04/29/19 09:15 05/27/19 09:14 Albuterol/ Ipratropium (Albuterol/ Ipratropium) 3 ml Q4HRT HHN 04/29/19 11:00 05/02/19 06:59 Alprazolam (Xanax) 0.5 mg TIDPRN PRN ORAL For Anxiety 04/29/19 09:15 05/05/19 09:14 Aripiprazole (Abilify) 10 mg DAILY ORAL 04/30/19 09:00 05/30/19 08:59 Azithromycin (Zithromax) 250 mg DAILY ORAL 04/30/19 09:00 05/07/19 08:59 Ceftriaxone Sodium 1 gm/ Dextrose 55 ml @ 110 mls/hr Q24H IVPB 04/29/19 20:00 05/04/19 19:59 Diphenhydramine HCl (Benadryl) 25 mg Q6H PRN IVP Itching 04/29/19 09:15 05/27/19 09:14 Docusate Sodium (Colace) 250 mg BID ORAL 04/29/19 18:00 05/28/19 17:59 Fluoxetine HCl (PROzac) 40 mg DAILY ORAL 04/30/19 09:00 05/30/19 08:59 Gabapentin (Neurontin) 600 mg BID ORAL 04/29/19 18:00 05/27/19 17:59 Guaifenesin/ Codeine Phosphate (Robitussin with codeine) 10 ml Q4H PRN ORAL For Cough 04/29/19 09:15 05/29/19 09:14 Heparin Sodium (Porcine) (Heparin 5000 units/ml) 5,000 units EVERY 12 HOURS SUBQ 04/29/19 21:00 05/27/19 20:59 Hydromorphone HCl (Dilaudid) 1 mg Q4H PRN IVP Severe Breakthru Pain (>7) 04/29/19 09:15 05/04/19 09:14 04/29/19 11:53 Magnesium Hydroxide (Mom) 30 ml BIDPRN PRN ORAL Constipation 04/29/19 09:15 05/28/19 09:14 Methylprednisolone Sodium Succinate (Solu-MEDROL) 40 mg EVERY 12 HOURS IVP 04/29/19 21:00 05/27/19 20:59 Ondansetron HCl (Zofran) 4 mg Q4H PRN IVP Nausea & Vomiting 04/29/19 09:00 05/29/19 08:59 Oxycodone/ Acetaminophen (Percocet 10/325) 1 tab Q4H PRN ORAL Severe Pain (Pain Scale 7-10) 04/29/19 09:15 05/05/19 09:14 Quetiapine Fumarate (SEROqueL) 300 mg BID@1200,2300 ORAL 04/29/19 12:00 05/28/19 11:59 04/29/19 12:03 Tizanidine HCl (Zanaflex) 4 mg THREE TIMES A DAY ORAL 04/29/19 13:00 05/27/19 12:59 Jose Luis Landa MD Apr 29, 2019 13:02
--- NOTE | 2019-04-29 14:15 | NUR ---
NURSE NOTES: Patient discharge at this time,discharge instructions given.IV removed and ID hospital band removed.Patient has her personal belongings.Patient has her prescriptions.Patient family here will take patient home.Will escort patient to private vehicle.Patient has own boot protection to the left leg.
[2019-04-29] MEDS ORDERED: Docusate 250mg cap ORAL SCH (18:00)
[2019-04-29] MEDS ORDERED: cefTRIAXone 1 GM in D5W 55 ML IVPB SCH (20:00)
[2019-04-29] MEDS ORDERED: Solu-MEDROL 40mg Inj IVP SCH (21:00)
[2019-04-29] MEDS ORDERED: Heparin 5000 units/ml inj SUBQ SCH (21:00)
--- NOTE | 2019-04-29 23:58 | Psych Consult Progress Note ---
Psychiatry Progress Note Psychiatry Progress Note Medications The patient still has medication seeking behavior, easily irritable and agitated. MENTAL STATUS EXAMINATION: The patient is alert and oriented times to self, place, situation, and date. Mood is dysphoric. Affect is constricted, congruent with mood. Thought process is concrete. Thought content, no suicidal or homicidal ideation. ASSESSMENT: Stable. PLAN: 1. Continue current medications. 2. Provide the patient with reality orientation and supportive therapy. Allergies: Coded Allergies: KETOROLAC (Verified Allergy, Unknown, hives, 04/27/19) MORPHINE (Verified Allergy, Unknown, hives, 04/27/19) Objective Data Height (Feet): 5 Height (Inches): 2.00 Weight (Pounds): 159 Appearance: no abnormalities noted Behavior Mannerisms: poor eye contact Mental Status Exam - Affect: labile Mental Status Exam - Mood: depressed Mental Status Exam - Thought P: coherent, illogical Diego Arciniega MD Apr 29, 2019 23:58
[2019-04-30] MEDS ORDERED: ARIPiprazole 10mg tab ORAL SCH (09:00)
[2019-04-30] MEDS ORDERED: Azithromycin 250mg tab ORAL SCH (09:00)
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
== END 2019-04-29 14:57 | disposition home or self-care (01) | DRG 178 ==
LOC: EDBD 18:07 → EMR 19:30 → 2E 20:27 → EDBEDREQ 22:26 → 4E 04-29 10:40
DX: J69.0 Pneumonitis due to inhalation of food and vomit (principal); J44.1 Chronic obstructive pulmonary disease with (acute) exacerbation; J44.0 Chronic obstructive pulmonary disease with (acute) lower respiratory infection; F31.9 Bipolar disorder, unspecified; Z87.891 Personal history of nicotine dependence; R09.02 Hypoxemia; J20.9 Acute bronchitis, unspecified; Z96.643 Presence of artificial hip joint, bilateral; G89.29 Other chronic pain; Z76.5 Malingerer [conscious simulation]; Z88.6 Allergy status to analgesic agent; Z88.8 Allergy status to other drugs, medicaments and biological substances; M51.36 Other intervertebral disc degeneration, lumbar region; M47.896 Other spondylosis, lumbar region; M79.605 Pain in left leg
CPT/HCPCS: 36415; 36600; 71045; 71250; 80053; 81003; 82550; 82803; 83605; 83735; 84100; 84484; 85007; 85025; 86710; 87040; 87070; 87205; 93005; 94640; 96365; 96368; 96375; 99285; J2405; J7620